=== PATIENT | male | born 1970 | race Caucasian/White ===

== ENCOUNTER 2020-11-30 19:13 | Emergency (ER) | payer OTHER ==
[~2020-11-30] VITALS: Ht 177.8 cm; Wt 65.8 kg
== END 2020-11-30 19:39 | disposition home or self-care (01) ==
LOC: ER 19:13
DX: J45.909 Unspecified asthma, uncomplicated (principal); Z76.0 Encounter for issue of repeat prescription; Z88.2 Allergy status to sulfonamides; Z88.1 Allergy status to other antibiotic agents
CPT/HCPCS: 99281; A9270